=== PATIENT | female | born 1985 | race Caucasian/White ===

== ENCOUNTER 2017-10-25 17:20 | Emergency (ER) | payer SELFPAY ==
[2017-10-25 21:20] VITALS: BP 153/94
[2017-10-25] MEDS ORDERED: HYDROcodone-ACET 5/325MG TAB PO ONE (22:00)
== END 2017-10-25 23:08 | disposition home or self-care (01) ==
LOC: ER 17:25
DX: S33.5XXA Sprain of ligaments of lumbar spine, initial encounter (principal); M25.511 Pain in right shoulder; V49.59XA Passenger injured in collision with other motor vehicles in traffic accident, initial encounter; Y93.89 Activity, other specified; Y99.8 Other external cause status; Y92.410 Unspecified street and highway as the place of occurrence of the external cause
CPT/HCPCS: 72100; 73030